=== PATIENT | female | born 2000 | race Caucasian/White ===

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

== ENCOUNTER 2019-05-13 12:21 | Emergency (ER) | payer SELFPAY ==
--- NOTE | 2019-05-13 13:05 | ER ---
Nurse's Notes [facility] Name: Alyson Snyder Age: 19 yrs Sex: Female : 2000 Arrival Date: 05/13/2019 Time: 12:24 Bed 20 Private MD: Diagnosis: Dental pain Presentation: 05/12 12:42 Chief complaint: Patient states: Pain in L upper and lower molars, also reports nausea, ph denies fever or vomiting. Coronavirus screen: The patient has NOT traveled to a country currently being monitored by the [facility] within the last 14 days. The patient has NOT had contact with any known and/or suspected case of coronavirus. Ebola Screen: No symptoms or risks identified at this time. Initial Sepsis Screen: Does the patient meet any 2 criteria? No. Patient's initial sepsis screen is negative. Does the patient have a suspected source of infection? No. Patient's initial sepsis screen is negative. Risk Assessment: Do you want to hurt yourself or someone else? Patient reports no desire to harm self or others. 12:42 Method Of Arrival: Ambulatory ph 12:42 Acuity: STEWART 5 ph Historical: - Allergies: 12:44 No Known Allergies; ph - PMHx: 12:44 ADD/ADHD; PCOS; Bipolar disorder; Schizophrenia; ph - PSHx: 12:44 None; ph - Immunization history:: Adult Immunizations unknown. - Social history:: Smoking status: Patient reports the use of cigarette tobacco products, smokes one pack cigarettes per day. Screenin:45 Abuse screen: Denies threats or abuse. Nutritional screening: No deficits noted. rb1 Tuberculosis screening: No symptoms or risk factors identified. Fall Risk None identified. Assessment: 12:45 General: Appears uncomfortable, Behavior is calm, cooperative, Denies fever. Pain: rb1 Complains of pain in lower left third molar (#17) and upper left third molar (#16) Pain currently is 10 out of 10 on a pain scale. Neuro: Level of Consciousness is awake, alert, obeys commands, Oriented to person, place, time, situation. Cardiovascular: Capillary refill < 3 seconds is brisk in bilateral fingers. Respiratory: Airway is patent Respiratory effort is even, unlabored, Respiratory pattern is regular, symmetrical. GI: Reports nausea. : No signs and/or symptoms were reported regarding the genitourinary system. EENT: Reports pain in left upper and lower jaw. Derm: Skin is pink, warm \T\ dry. 13:40 Reassessment: Patient appears in no apparent distress at this time. No changes from rb1 previously documented assessment. Vital Signs: 12:42 BP 129 / 87; Pulse 93; Resp 16; Temp 98.4; Pulse Ox 97% on R/A; Weight 56.7 kg; Height ph 4 ft. 10 in. (147.32 cm); 12:45 BP 126 / 71; Pulse 93; Resp 17; Temp 98.0(O); Pulse Ox 98% on R/A; Weight 54.43 kg (R); rb1 Height 5 ft. 2 in. (157.48 cm) (R); Pain 10/10; 13:30 BP 105 / 91; Pulse 94; Resp 17; Pulse Ox 99% ; Pain 10/10; rb1 12:45 Body Mass Index 21.95 (54.43 kg, 157.48 cm) rb1 ED Course: 12:24 Patient arrived in ED. ag5 12:27 Rojel[facility] Villafana [facility]-C [facility] la1 12:27 Hermann Apodaca MD is Attending Physician. la1 12:44 Triage completed. ph 12:45 Arm band placed on Patient placed in an exam room, on a stretcher. ph 12:45 Patient has correct armband on for positive identification. Bed in low position. Call rb1 light in reach. Side rails up X 1. Pulse ox on. NIBP on. 13:10 Aliza Galeano RN is Primary Nurse. rb1 13:43 No provider procedures requiring assistance completed. Patient did not have IV access rb1 during this emergency room visit. Administered Medications: 13:37 Drug: Ibuprofen 600 mg Route: PO; rb1 13:40 Follow up: Response: Medication administered at discharge. rb1 Outcome: 13:04 Discharge ordered by MD. la1 13:43 Patient left the ED. rb1 13:43 Discharged to home ambulatory, with family. rb1 13:43 Condition: stable 13:43 Discharge instructions given to patient, Instructed on discharge instructions, follow up and referral plans. medication usage, Demonstrated understanding of instructions, follow-up care, medications, Prescriptions given X 1. Signatures: Rojelio Villafana FNP-C CRYPTOLOGIC SUPERVISOR-Cla1 Venita Palmer RN RN ph Aliza Galeano, RN RN rb1 Radha, Jaylon ag5
--- NOTE | 2019-05-13 13:05 | EDPHYS ---
Physician Documentation [facility] Name: Alyson Snyder Age: 19 yrs Sex: Female : 2000 Arrival Date: 05/13/2019 Time: 12:24 Bed 20 Private MD: ED Physician Hermann Apodaca HPI: 05/12 12:58 This 19 yrs old Female presents to ER via Ambulatory with complaints of Mouth la1 Problem. 12:58 The patient presents with pain. The problem is located in the upper left third molar la1 and lower left third molar. Onset: The symptoms/episode began/occurred yesterday. Duration: The symptoms are continuous. Modifying factors: The symptoms are alleviated by nothing, the symptoms are aggravated by chewing, swallowing. Associated signs and symptoms: Pertinent positives: pain, Pertinent negatives: chills, fever, inability to eat, nausea. Severity of symptoms: At their worst the symptoms were mild. The patient has not experienced similar symptoms in the past. Historical: - Allergies: 12:44 No Known Allergies; ph - PMHx: 12:44 ADD/ADHD; PCOS; Bipolar disorder; Schizophrenia; ph - PSHx: 12:44 None; ph - Immunization history:: Adult Immunizations unknown. - Social history:: Smoking status: Patient reports the use of cigarette tobacco products, smokes one pack cigarettes per day. ROS: 12:59 Constitutional: Negative for fever, chills, and weight loss, Eyes: Negative for injury, la1 pain, redness, and discharge. 12:59 Neck: Negative for injury, pain, and swelling, Cardiovascular: Negative for chest pain, palpitations, and edema, Respiratory: Negative for shortness of breath, cough, wheezing, and pleuritic chest pain, Abdomen/GI: Negative for abdominal pain, nausea, vomiting, diarrhea, and constipation, MS/Extremity: Negative for injury and deformity, Skin: Negative for injury, rash, and discoloration, Neuro: Negative for headache, weakness, numbness, tingling, and seizure. 12:59 ENT: Positive for dental pain. Exam: 13:00 Constitutional: This is a well developed, well nourished patient who is awake, alert, la1 and in no acute distress. Head/Face: Normocephalic, atraumatic. 13:00 Neck: Trachea midline, no cervical lymphadenopathy. Supple, full range of motion without nuchal rigidity, or vertebral point tenderness. No Meningismus. Respiratory: No increased work of breathing. 13:00 ENT: Ear canal(s): are normal, clear, TM's: are normal, Mouth: Lips: normal, Oral mucosa: normal, pink and intact, Gums: normal with healthy appearance, Tongue: is normal, abscess, is not appreciated, drooling, is not appreciated, mild trismus, still able to open enough for exam and PO food/water, Posterior pharynx: Airway: normal, Tonsils: are normal in appearance, Uvula: normal, midline, swelling, is not appreciated, erythema, is not appreciated, peritonsillar mass, is not appreciated, pooling of secretions, is not appreciated, Dental exam: pain, that is moderate, specifically in the upper left third molar (#16) and lower left third molar (#17), Voice: is normal. Vital Signs: 12:42 BP 129 / 87; Pulse 93; Resp 16; Temp 98.4; Pulse Ox 97% on R/A; Weight 56.7 kg; Height ph 4 ft. 10 in. (147.32 cm); 12:45 BP 126 / 71; Pulse 93; Resp 17; Temp 98.0(O); Pulse Ox 98% on R/A; Weight 54.43 kg (R); rb1 Height 5 ft. 2 in. (157.48 cm) (R); Pain 10/10; 13:30 BP 105 / 91; Pulse 94; Resp 17; Pulse Ox 99% ; Pain 10/10; rb1 12:45 Body Mass Index 21.95 (54.43 kg, 157.48 cm) rb1 MDM: 12:50 Patient medically screened. la1 13:01 Data reviewed: vital signs, nurses notes. Counseling: I had a detailed discussion with la1 the patient and/or guardian regarding: the historical points, exam findings, and any diagnostic results supporting the discharge/admit diagnosis, the need for outpatient follow up, a dentist, to return to the emergency department if symptoms worsen or persist or if there are any questions or concerns that arise at home. Special discussion: Based on the history and exam findings, there is no indication for further emergent testing or inpatient evaluation. I discussed with the patient/guardian the need to see a dentist for further evaluation of the symptoms. ED course: patient with pain in left upper and lower jaw. Tenderness to palpation of external left cheek, concern for early infection/abscess formation although pain could be from wisdom teeth eruption. Due to mild trismus and tenderness I will treat with abx and recommend FU with dentist. Pt does not have and submandibular erythema or edema, no sublingual edema.. Administered Medications: 13:37 Drug: Ibuprofen 600 mg Route: PO; rb1 13:40 Follow up: Response: Medication administered at discharge. rb1 Disposition: 14:19 Co-signature as Attending Physician, Hermann Apodaca MD. rn Disposition: 05/13/19 13:04 Discharged to Home. Impression: Dental pain. - Condition is Stable. - Discharge Instructions: Dental Pain, Dental Pain, [id number], Preventive Dental Care, Adult. - Prescriptions for Augmentin 875- 125 mg Oral Tablet - take 1 tablet by ORAL route every 12 hours for 10 days; 20 tablet. - Medication Reconciliation Form, Thank You Letter, Antibiotic Education form. - Follow up: Private Physician; When: 2 - 3 days; Reason: Recheck today's complaints, Re-evaluation by your physician. - Problem is new. - Symptoms are unchanged. Signatures: Hermann Apodaca MD MD rn Rojelio Villafana, OTR COMPANY DRIVER-C OTR COMPANY DRIVER-Cla1 Venita Palmer, ELZA RN Aliza Galeano, RN RN rb1 Corrections: (The following items were deleted from the chart) 13:43 13:04 05/13/2019 13:04 Discharged to Home. Impression: Dental pain. Condition is rb1 Stable. Forms are Medication Reconciliation Form, Thank You Letter, Antibiotic Education, Prescription Opioid Use. Follow up: Private Physician; When: 2 - 3 days; Reason: Recheck today's complaints, Re-evaluation by your physician. Problem is new. Symptoms are unchanged. la1
[2019-05-13] MEDS ORDERED: IBUPROFEN 400 MG TAB ONE (13:38)
[2019-05-13] MEDS ORDERED: IBUPROFEN 200 MG TAB PO ONE (13:38)
[2019-05-13 13:49] VITALS: BP 129/87; TEMP 98.4; O2SAT 97
== END 2019-05-13 13:43 | disposition home or self-care (01) ==
LOC: ER 12:21
DX: K08.89 Other specified disorders of teeth and supporting structures (principal); F17.210 Nicotine dependence, cigarettes, uncomplicated
CPT/HCPCS: 99283

== ENCOUNTER 2019-05-29 19:29 | Emergency (ER) | payer SELFPAY ==
--- NOTE | 2019-05-29 20:37 | EDPHYS ---
Physician Documentation [facility] Name: Alyson Snyder Age: 19 yrs Sex: Female : 2000 Arrival Date: 05/29/2019 Time: 19:32 Bed 23 Private MD: ROLO Physician Kendall Cifuentes HPI: 05/28 20:41 This 19 yrs old Female presents to ER via Ambulatory with complaints of Sore kb Throat, Headache. 20:41 The patient presents with sore throat. The patient describes throat pain as constant. kb Onset: The symptoms/episode began/occurred today. Severity of symptoms: At their worst the symptoms were mild, moderate, in the emergency department the symptoms are unchanged. Modifying factors: The symptoms are alleviated by nothing, the symptoms are aggravated by nothing, Patient's oral intake status: good. Associated signs and symptoms: Pertinent positives: flu-like symptoms, myalgias, nausea, Sore throat Pertinent negatives fever. The patient has not experienced similar symptoms in the past. The patient has not recently seen a physician. 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 - Social history:: Smoking status: Patient reports the use of cigarette tobacco products, smokes one pack cigarettes per day. Patient uses alcohol, occasionally. street drugs, marijuana. ROS: 20:37 Constitutional: Negative for fever, chills, and weight loss, Neck: Negative for injury, kb pain, and swelling, Cardiovascular: Negative for chest pain, palpitations, and edema, Respiratory: Negative for shortness of breath, cough, wheezing, and pleuritic chest pain, Abdomen/GI: Negative for abdominal pain, vomiting, diarrhea, and constipation. +nausea Back: Negative for injury and pain, MS/Extremity: Negative for injury and deformity, Skin: Negative for injury, rash, and discoloration, Neuro: Negative for headache, weakness, numbness, tingling, and seizure. 20:37 Constitutional: Positive for body aches. 20:37 ENT: Positive for sore throat. Exam: 20:37 Constitutional: This is a well developed, well nourished patient who is awake, alert, kb and in no acute distress. Head/Face: Normocephalic, atraumatic. ENT: Nares patent. No nasal discharge, no septal abnormalities noted. Tympanic membranes are normal and external auditory canals are clear. Oropharynx with no redness, swelling, or masses, exudates, or evidence of obstruction, uvula midline. Mucous membranes moist. Neck: Trachea midline, no thyromegaly or masses palpated, and no cervical lymphadenopathy. Supple, full range of motion without nuchal rigidity, or vertebral point tenderness. No Meningismus. Chest/axilla: Normal chest wall appearance and motion. Nontender with no deformity. No lesions are appreciated. Cardiovascular: Regular rate and rhythm with a normal S1 and S2. No gallops, murmurs, or rubs. Normal PMI, no JVD. No pulse deficits. Respiratory: Lungs have equal breath sounds bilaterally, clear to auscultation and percussion. No rales, rhonchi or wheezes noted. No increased work of breathing, no retractions or nasal flaring. Abdomen/GI: Soft, non-tender, with normal bowel sounds. No distension or tympany. No guarding or rebound. No evidence of tenderness throughout. Skin: Warm, dry with normal turgor. Normal color with no rashes, no lesions, and no evidence of cellulitis. MS/ Extremity: Pulses equal, no cyanosis. Neurovascular intact. Full, normal range of motion. Neuro: Awake and alert, GCS 15, oriented to person, place, time, and situation. Cranial nerves II-XII grossly intact. Motor strength 5/5 in all extremities. Sensory grossly intact. Cerebellar exam normal. Normal gait. Vital Signs: 19:46 BP 118 / 68; Pulse 95; Resp 18; Temp 98.4(O); Pulse Ox 100% on R/A; Weight 68.04 kg fc (R); Height 4 ft. 10 in. (147.32 cm) (R); Pain 6/10; 21:05 Temp 98.7; Pain 0/10; ch2 19:46 Body Mass Index 31.35 (68.04 kg, 147.32 cm) MDM: 19:52 Patient medically screened. kb 20:35 Data reviewed: vital signs, nurses notes. Data interpreted: Pulse oximetry: on room air kb is 100 %. Interpretation: normal. Counseling: I had a detailed discussion with the patient and/or guardian regarding: the historical points, exam findings, and any diagnostic results supporting the discharge/admit diagnosis, lab results, the need for outpatient follow up, a family practitioner, to return to the emergency department if symptoms worsen or persist or if there are any questions or concerns that arise at home. 05/28 19:53 Order name: Flu; Complete Time: 20:35 kb 05/28 19:53 Order name: Strep; Complete Time: 20:35 kb 05/28 20:31 Order name: Throat Culture EDMS Administered Medications: No medications were administered Disposition: 05/29 07:31 Co-signature as Attending Physician, Kendall Cifuentes MD I agree with the assessment and [facility] plan of care. Disposition: 05/29/19 20:36 Discharged to Home. Impression: Acute pharyngitis. - Condition is Stable. - Discharge Instructions: Pharyngitis, [id number], Viral Respiratory Infection, [id number]. - Medication Reconciliation Form, Thank You Letter, Antibiotic Education, Prescription Opioid Use form. - Follow up: Emergency Department; When: As needed; Reason: Worsening of condition. Follow up: Private Physician; When: 2 - 3 days; Reason: Recheck today's complaints, Continuance of care, Re-evaluation by your physician. Signatures: Dispatcher [employer] EDMS Lauren Lawrence, Kendall Johnson MD MD cha Chretien, Felicia RN RN Janell Mcintyre RN RN ch2 Corrections: (The following items were deleted from the chart) 05/28 21:07 20:36 05/29/2019 20:36 Discharged to Home. Impression: Acute pharyngitis. Condition is ch2 Stable. Forms are Medication Reconciliation Form, Thank You Letter, Antibiotic Education, Prescription Opioid Use. Follow up: Emergency Department; When: As needed; Reason: Worsening of condition. Follow up: Private Physician; When: 2 - 3 days; Reason: Recheck today's complaints, Continuance of care, Re-evaluation by your physician. kb
--- NOTE | 2019-05-29 20:37 | ER ---
Nurse's Notes [facility] Name: Alyson Snyder Age: 19 yrs Sex: Female : 2000 Arrival Date: 05/29/2019 Time: 19:32 Bed 23 Private MD: Diagnosis: Acute pharyngitis Presentation: 05/28 19:46 Chief complaint: Patient states: that she is having on and off headaches, abd pain, fc nausea and body aches. Also has sore throat. Started 2 days ago. States that she feels as if she has the flu. Denies any fever or resp distress. Coronavirus screen: Patient denies fever greater than 100.4F, cough, shortness of breath, or difficulty breathing. Proceed with normal triage process. Ebola Screen: Patient negative for fever greater than or equal to 101.5 degrees Fahrenheit, and additional compatible Ebola Virus Disease symptoms Patient denies exposure to infectious person. Patient denies travel to an Ebola-affected area in the 21 days before illness onset. Initial Sepsis Screen: Does the patient meet any 2 criteria? No. Patient's initial sepsis screen is negative. Does the patient have a suspected source of infection? No. Patient's initial sepsis screen is negative. Risk Assessment: Do you want to hurt yourself or someone else? Patient reports no desire to harm self or others. Onset of symptoms was May 27, 2019. Care prior to arrival: Medication(s) given: Tylenol PM last night. Transition of care: patient was not received from another setting of care. 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 - Social history:: Smoking status: Patient reports the use of cigarette tobacco products, smokes one pack cigarettes per day. Patient uses alcohol, occasionally. street drugs, marijuana. Screenin:05 Abuse screen: Denies threats or abuse. Denies injuries from another. Nutritional ch2 screening: No deficits noted. Tuberculosis screening: No symptoms or risk factors identified. Fall Risk None identified. Assessment: 20:40 General: Appears in no apparent distress. comfortable, unkempt, well developed, well ch2 nourished, Behavior is calm, cooperative, appropriate for age. 20:40 Pain: Complains of pain in throat Quality of pain is described as sore/scratchy Pain ch2 began 2-3 days ago. Neuro: No deficits noted. Level of Consciousness is awake, alert, obeys commands, Oriented to person, place, time, situation, Appropriate for age Aquatic Director are equal bilaterally Moves all extremities. Full function Gait is steady, Speech is normal, Denies weakness blurred vision headache. Cardiovascular: No deficits noted. Denies chest pain, diaphoresis, lightheadedness, nausea, shortness of breath, syncope, vomiting. Respiratory: No deficits noted. Airway is patent Respiratory effort is even, unlabored, Breath sounds are clear bilaterally. GI: No deficits noted. No signs and/or symptoms were reported involving the gastrointestinal system. Abdomen is round non-distended. : No deficits noted. No signs and/or symptoms were reported regarding the genitourinary system. Denies burning with urination, cramping. EENT: Throat is pink. Derm: No deficits noted. No signs and/or symptoms reported regarding the dermatologic system. Musculoskeletal: No deficits noted. No signs and/or symptoms reported regarding the musculoskeletal system. Denies. Vital Signs: 19:46 BP 118 / 68; Pulse 95; Resp 18; Temp 98.4(O); Pulse Ox 100% on R/A; Weight 68.04 kg fc (R); Height 4 ft. 10 in. (147.32 cm) (R); Pain 6/10; 21:05 Temp 98.7; Pain 0/10; ch2 19:46 Body Mass Index 31.35 (68.04 kg, 147.32 cm) ED Course: 19:32 Patient arrived in ED. cl3 19:33 Lauren Lawrence FNP-C is [facility]. kb 19:33 Kendall Cifuentes MD is Attending Physician. kb 19:49 Triage completed. fc 19:50 Arm band placed on Patient placed in an exam room, on a stretcher. fc 20:05 Flu and/or RSV swab sent to lab. Strep swab sent to lab. jp3 21:06 No provider procedures requiring assistance completed. Patient did not have IV access ch2 during this emergency room visit. 21:07 Bed in low position. Call light in reach. ch2 Administered Medications: No medications were administered Outcome: 20:36 Discharge ordered by . eze 21:06 Discharged to home ambulatory. ch2 21:06 Condition: good 21:06 Discharge instructions given to patient, Instructed on discharge instructions, follow up and referral plans. 21:07 Patient left the ED. ch2 Signatures: Lauren Lawrence FNP-C FNP-Sharon Martinez, RN RN fc Janell Mcintyre RN RN ch2 Jouse Fleming jp3 Ashok Greenfield cl3
[2019-05-29 21:23] VITALS: BP 118/68; O2SAT 100
[2019-05-29 21:59] VITALS: TEMP 98.7
== END 2019-05-29 21:07 | disposition home or self-care (01) ==
LOC: ER 19:29
DX: J02.9 Acute pharyngitis, unspecified (principal); F17.210 Nicotine dependence, cigarettes, uncomplicated
CPT/HCPCS: 87070; 87081; 87804; 99283

== ENCOUNTER 2021-01-23 15:06 | Emergency (ER) | payer SELFPAY ==
[2021-01-23 15:41] LABS: Urine Blood Negative (Negative); Urine Glucose Negative (Negative); Urine Protein Trace (Negative); Urine Specific Gravity >=1.030 (1.005-1.030)
[2021-01-23] MEDS ORDERED: NA CHLORIDE 0.9% 1,000 ML ONE (16:13)
[2021-01-23 16:16] LABS: Urine Specific Gravity/Preg >1.030 (1.005-1.030)
[2021-01-23 16:17] LABS: Absolute Lymphocytes (CBC) 1.9 K/uL (0.7-4.9); Basophils % 0.6 % (0-1.3); Hematocrit 39.1 % (36.0-45.0); Lymphocytes % 23.3 % (15.3-44.8); MPV 7.7 fL (7.6-11.3); RBC Red Blood Cell Count 4.42 M/uL (3.86-4.86)
[2021-01-23 16:43] LABS: ALT/SGPT 18 U/L (12-78); AST/SGOT 13 U/L (15-37); Alkaline Phosphatase 70 U/L (45-117); BUN Blood Urea Nitrogen 12 mg/dL (7-18); Bicarbonate 28 mmol/L (21-32); Bilirubin Direct 0.1 mg/dL (0-0.2); Bilirubin Total 0.3 mg/dL (0.2-1.0); Glucose Level 83 mg/dL (74-106); Lipase 79 U/L (73-393); Potassium 3.7 mmol/L (3.5-5.1); Protein, Total 7.9 g/dL (6.4-8.2); Sodium Level 144 mmol/L (136-145)
[2021-01-23] MEDS ORDERED: KETOROLAC 30 MG/ML INJ ONE (17:22)
--- NOTE | 2021-01-23 17:24 | RAD REPORT ---
EXAM DESCRIPTION: CT - Abdomen Pelvis W Contrast - 01/23/2021 4:57 pm CLINICAL HISTORY: Abdominal pain COMPARISON: none. TECHNIQUE: Computed axial tomography of the abdomen pelvis was obtained. 100 cc Isovue-300 was admin istered intravenously. Oral contrast was not requested which limits evaluation of bowel. All CT scans are performed using dose optimization technique as appropriate and may include automated exposure control or mA/KV adjustment according to patient size. FINDINGS: The liver, spleen, pancreas, adrenal and kidneys appear unremarkable. There is no evidence of diverticulitis. Normal appendix. 4 centimeter left ovarian cyst without significant free fluid Moderate amount stool within the colon IMPRESSION: 4 centimeter left ovarian cyst without significant free fluid
[2021-01-23 17:26] LABS: Urine Bacteria >50 /HPF (<20); Urine RBC <5 /HPF (NONE SEEN)
--- NOTE | 2021-01-23 17:28 | EDPHYS ---
Physician Documentation [facility] Name: Alyson Snyder Age: 21 yrs Sex: Female : 2000 Arrival Date: 01/23/2021 Time: 15:11 Bed 11 Private MD: ED Physician Ian Jeronimo HPI: 01/23 17:12 This 21 yrs old Female presents to ER via Ambulatory with complaints of Abdominal Pain. kb 17:12 The patient presents with abdominal pain in the right upper quadrant, right lower kb quadrant. Onset: The symptoms/episode began/occurred 3 day(s) ago. The symptoms do not radiate. Associated signs and symptoms: none. The symptoms are described as constant. Modifying factors: The symptoms are alleviated by nothing, the symptoms are aggravated by nothing. Severity of pain: At its worst the pain was moderate in the emergency department the pain is unchanged. The patient has not experienced similar symptoms in the past. The patient has not recently seen a physician. Pt reports abd pain for a few days. Also reports she hasn't had a period in 2 months and the last time she did she passed something that she has been told looked like a fetus. 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 - Social history:: Smoking status: Patient reports the use of cigarette tobacco products, smokes one-half pack cigarettes per day. ROS: 17:12 Constitutional: Negative for fever, chills, and weight loss. kb 17:12 Abdomen/GI: Positive for abdominal pain, Negative for nausea, vomiting, and diarrhea. 17:12 All other systems are negative. Exam: 17:12 Constitutional: This is a well developed, well nourished patient who is awake, alert, kb and in no acute distress. Head/Face: Normocephalic, atraumatic. ENT: Moist Mucous membranes Cardiovascular: Regular rate and rhythm with a normal S1 and S2. No gallops, murmurs, or rubs. No pulse deficits. Respiratory: Respirations even and unlabored. No increased work of breathing, no retractions or nasal flaring. Skin: Warm, dry with normal turgor. Normal color. MS/ Extremity: Pulses equal, no cyanosis. Neurovascular intact. Full, normal range of motion. Neuro: Awake and alert, GCS 15, oriented to person, place, time, and situation. Moves all extremities. Normal gait. Psych: Awake, alert, with orientation to person, place and time. Behavior, mood, and affect are within normal limits. 17:12 Abdomen/GI: Inspection: abdomen appears normal, Bowel sounds: normal, in all quadrants, Palpation: soft, in all quadrants, mild abdominal tenderness, in the right upper quadrant, moderate abdominal tenderness, in the right lower quadrant. Vital Signs: 15:22 BP 117 / 73; Pulse 96; Resp 16 S; Temp 98.2; Pulse Ox 100% on R/A; Height 4 ft. 10 in. iw (147.32 cm); 17:27 BP 122 / 65; Pulse 92; Resp 18; Pulse Ox 97% on R/A; aj1 18:28 BP 118 / 75; Pulse 88; Resp 16; Pulse Ox 99% on R/A; aj1 MDM: 15:35 Patient medically screened. kb 17:10 Data reviewed: vital signs, nurses notes. Data interpreted: Pulse oximetry: on room air kb is 100 %. Interpretation: normal. Counseling: I had a detailed discussion with the patient and/or guardian regarding: the historical points, exam findings, and any diagnostic results supporting the discharge/admit diagnosis, lab results, radiology results, the need for outpatient follow up, a family practitioner, to return to the emergency department if symptoms worsen or persist or if there are any questions or concerns that arise at home. 01/23 15:40 Order name: Urine Microscopic Only; Complete Time: 17:28 kb 01/23 15:41 Order name: Urine Dipstick-Ancillary; Complete Time: 15:44 EDMS 01/23 15:43 Order name: Basic Metabolic Panel; Complete Time: 16:48 kb 01/23 15:43 Order name: CBC with Diff; Complete Time: 16:24 kb 01/23 15:43 Order name: Hepatic Function; Complete Time: 16:48 kb 01/23 15:43 Order name: Lipase; Complete Time: 16:48 kb 01/23 15:34 Order name: Urine Dipstick-Ancillary (obtain specimen); Complete Time: 15:41 iw 01/23 15:34 Order name: Urine Test (obtain specimen); Complete Time: 15:41 iw 01/23 15:43 Order name: CT Abd/Pelvis - IV Contrast Only; Complete Time: 17:26 kb 01/23 15:44 Order name: Urine --Ancillary (enter results); Complete Time: 16:16 em1 01/23 17:28 Order name: Urine Culture EDIL 01/23 15:43 Order name: IV Saline Lock; Complete Time: 16:15 kb 01/23 15:43 Order name: Labs collected and sent; Complete Time: 16:15 kb Administered Medications: 16:15 Drug: NS 0.9% 1000 ml Route: IV; Rate: 1000 ml; Site: right antecubital; aj1 17:26 Drug: Ketorolac 30 mg Route: IVP; Site: right antecubital; aj1 17:49 Drug: Rocephin (cefTRIAXone) 1 grams Route: IV; Rate: calculated rate; Site: right aj1 antecubital; Disposition: 18:49 Co-signature as Attending Physician, Ian Jeronimo MD I agree with the assessment and kdr plan of care. Disposition Summary: 01/23/21 17:28 Discharge Ordered Location: Home kb Condition: Stable kb Diagnosis - Other ovarian cysts kb - Constipation kb - UTI/ Urinary tract infection, site not specified kb Followup: kb - With: Emergency Department - When: As needed - Reason: Worsening of condition Followup: kb - With: Private Physician - When: 2 - 3 days - Reason: Recheck today's complaints, Continuance of care, Re-evaluation by your physician Discharge Instructions: - Discharge Summary Sheet kb - Constipation, Adult, [id number] kb - Ovarian Cyst, [id number] kb - Urinary Tract Infection, Adult, [id number] kb Forms: - Medication Reconciliation Form kb - Thank You Letter kb - Antibiotic Education kb - Prescription Opioid Use kb Prescriptions: - Ibuprofen 800 mg Oral Tablet - take 1 tablet by ORAL route every 8 hours As needed take with food; 30 tablet; kb Refills: 0, Product Selection Permitted - Macrobid 100 mg Oral Capsule - take 1 capsule by ORAL route every 12 hours for 10 days; 20 capsule; Refills: kb 0, Product Selection Permitted Signatures: Dispatcher [employer] Lauren Quinonez, SEWING MACHINIST-C SEWING MACHINIST-Luba Iniguez, RN RN aj1 Ian Jeronimo MD MD kdr Jasmyn Hull, RN RN iw
--- NOTE | 2021-01-23 17:28 | ER ---
Nurse's Notes [facility] Name: Alyson Snyder Age: 21 yrs Sex: Female : 2000 Arrival Date: 01/23/2021 Time: 15:11 Bed 11 Private MD: Diagnosis: Other ovarian cysts;Constipation;UTI/ Urinary tract infection, site not specified Presentation: 01/23 15:22 Chief complaint: Patient states: passed a piece of tissue that looked like a shrimp iw with nubs about a month ago, had a lot of pain when that happened, thinks it was a miscarriage, she still hasn't had a period since then and is now having pain across her abdomen. Coronavirus screen: At this time, the client does not indicate any symptoms associated with coronavirus-19. Ebola Screen: Patient negative for fever greater than or equal to 101.5 degrees Fahrenheit, and additional compatible Ebola Virus Disease symptoms Patient denies exposure to infectious person. Patient denies travel to an Ebola-affected area in the 21 days before illness onset. No symptoms or risks identified at this time. Initial Sepsis Screen: Does the patient meet any 2 criteria? No. Patient's initial sepsis screen is negative. Does the patient have a suspected source of infection? No. Patient's initial sepsis screen is negative. Risk Assessment: Do you want to hurt yourself or someone else? Patient reports no desire to harm self or others. Onset of symptoms was January 23, 2021. 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 - Social history:: Smoking status: Patient reports the use of cigarette tobacco products, smokes one-half pack cigarettes per day. Screenin:16 Abuse screen: Denies threats or abuse. Denies injuries from another. Nutritional aj1 screening: No deficits noted. Tuberculosis screening: No symptoms or risk factors identified. 18:29 Fall Risk None identified. aj1 Assessment: 16:16 General: Appears in no apparent distress. comfortable, Behavior is calm, cooperative, aj1 appropriate for age. Pain: Complains of pain in abdomen. Neuro: Level of Consciousness is awake, alert, obeys commands, Oriented to person, place, time, situation. Cardiovascular: Patient's skin is warm and dry. Respiratory: Airway is patent Respiratory effort is even, unlabored, Respiratory pattern is regular, symmetrical. GI: Abdomen is flat, non-distended, Bowel sounds present X 4 quads. Abd is soft X 4 quads. : No signs and/or symptoms were reported regarding the genitourinary system. EENT: No signs and/or symptoms were reported regarding the EENT system. Derm: No signs and/or symptoms reported regarding the dermatologic system. Skin is pink, warm \T\ dry. normal. Musculoskeletal: No signs and/or symptoms reported regarding the musculoskeletal system. Circulation, motion, and sensation intact. 17:27 Reassessment: Patient appears in no apparent distress at this time. No changes from aj1 previously documented assessment. Patient and/or family updated on plan of care and expected duration. Pain level reassessed. Patient is alert, oriented x 3, equal unlabored respirations, skin warm/dry/pink. 18:28 Reassessment: Patient appears in no apparent distress at this time. No changes from aj1 previously documented assessment. Patient and/or family updated on plan of care and expected duration. Pain level reassessed. Patient is alert, oriented x 3, equal unlabored respirations, skin warm/dry/pink. Vital Signs: 15:22 BP 117 / 73; Pulse 96; Resp 16 S; Temp 98.2; Pulse Ox 100% on R/A; Height 4 ft. 10 in. iw (147.32 cm); 17:27 BP 122 / 65; Pulse 92; Resp 18; Pulse Ox 97% on R/A; aj1 18:28 BP 118 / 75; Pulse 88; Resp 16; Pulse Ox 99% on R/A; aj1 ED Course: 15:11 Patient arrived in ED. mr 15:26 Triage completed. iw 15:27 Arm band placed on. iw 15:35 Lauren Lawrence FNP-C is [facility]. kb 15:35 Ian Jeronmio MD is Attending Physician. kb 15:38 Chapito, Luba, RN is Primary Nurse. aj1 16:16 Patient has correct armband on for positive identification. Bed in low position. Call aj1 light in reach. Side rails up X 1. 16:16 No provider procedures requiring assistance completed. Inserted saline lock: 20 gauge aj1 in right antecubital area, using aseptic technique. Blood collected. 16:57 CT Abd/Pelvis - IV Contrast Only In Process Unspecified. EDMS 18:28 IV discontinued, intact, bleeding controlled, No redness/swelling at site. Pressure aj1 dressing applied. Administered Medications: 16:15 Drug: NS 0.9% 1000 ml Route: IV; Rate: 1000 ml; Site: right antecubital; aj1 17:26 Drug: Ketorolac 30 mg Route: IVP; Site: right antecubital; aj1 17:49 Drug: Rocephin (cefTRIAXone) 1 grams Route: IV; Rate: calculated rate; Site: right aj1 antecubital; Outcome: 17:28 Discharge ordered by . kb 18:29 Discharged to home ambulatory. aj1 18:29 Condition: good 18:29 Discharge instructions given to patient, Instructed on discharge instructions, follow up and referral plans. medication usage, Demonstrated understanding of instructions, follow-up care, medications. 18:29 Patient left the ED. aj1 Addendum: 01/26/2021 08:13 Addendum: Culture Results: Positive urine culture. No further action required. Bacteria i w sensitive to prescribed antibiotic. Signatures: Dispatcher [employer] EDMS Lauren Lawrence, SURYA MONACOP-Luba Iniguez, RN RN ivonne Halima Mckeon Irene, RN RN iw
[2021-01-23] MEDS ORDERED: CEFTRIAXONE 1000 MG/VIAL ONE (17:39)
[2021-01-23] MEDS ORDERED: NA CHLORIDE 0.9% 100 ML ONE (17:39)
[2021-01-23 19:13] VITALS: TEMP 98.2
[2021-01-23 19:16] VITALS: BP 118/75; O2SAT 99
== END 2021-01-23 18:29 | disposition home or self-care (01) ==
LOC: ER 15:06
DX: K59.00 Constipation, unspecified (principal); N39.0 Urinary tract infection, site not specified; N83.299 Other ovarian cyst, unspecified side
CPT/HCPCS: 36415; 74177; 80048; 80076; 81003; 81015; 81025; 83690; 85025; 87077; 87086; 87088; 87186; 96374; 96375; 99284; J7030; Q9967